=== PATIENT | male | born 1975 | race African-American/Black ===

== ENCOUNTER 2016-09-28 19:28 | Emergency (ER) | payer OTHER ==
[2016-09-28 19:35] VITALS: BP 119/75; PULSE 96; TEMP 98.1; BMI 39.5
[2016-09-28] MEDS ORDERED: KETOROLAC TROMETHAMINE 60 MG/2 ML VIAL IM ONE (20:56)
--- NOTE | 2016-09-28 20:56 | PDOC ---
History of Present Illness - General Chief Complaint: Chest Pain Stated Complaint: CHEST PAIN Time Seen by Provider: 09/28/16 20:10 History Source: Patient Exam Limitations: No Limitations - History of Present Illness Initial Comments: 09/28/16 20:57 Chief complaint: Intermittent chest discomfort started 2 weeks ago at comes and goes History of present illness: Patient is a 40-year-old male with a history of gastric reflux here today complaining of the left mid to left sternal border discomfort that started approximately 2 weeks ago that comes and goes. Patient reports the most the pain had been was a 5 out of 10 at times feels like at times feels as if it is a burning sensation. Patient denies any radiation of pain down left arm. Patient reports that pain currently as a 4 out of 10 and is reproducible with palpation along the left sternal border. Patient has been exercising at the gym lifting weights stopped doing this approximately 6 days ago however patient continues to have intermittent pain along sternal border. Denies any nausea or vomiting or shortness of breath. 09/28/16 22:53 09/28/16 22:55 Timing/Duration: intermittent (for 2 weeks ) Severity: mild Associated Symptoms: reports: chest pain (see under other ), other (mid chest discomfort and along left sternal border intermittently for 2 weeks reproducible with palpation ) Past History - Past Medical History Allergies/Adverse Reactions: Allergies Allergy/AdvReac Type Severity Reaction Status Date / Time No Known Allergies Allergy Verified 09/28/16 19:35 GI Disorders: Yes (acid reflux) - Immunization History Immunization Up to Date: Yes - Psycho/Social/Smoking Cessation Hx Suicidal Ideation: No Smoking History: Former smoker Have you smoked in the past 12 months: Yes If you are a former smoker, when did you quit?: 6 months ago Information on smoking cessation initiated: No Hx Alcohol Use: Yes Drug/Substance Use Hx: Yes (ecstacy, MDMA) Review of Systems - Review of Systems Able to Perform ROS?: Yes Constitutional: No: Symptoms Reported HEENTM: No: Symptoms Reported Respiratory: No: Symptoms reported Cardiac (ROS): Yes: Chest Pain (mid to left sternal border intermitent for 2 weeks ). No: Irregular Heart Rate ABD/GI: Yes: Indigestion (intermittent for 2 weeks with intermittent belging none presently ) : No: Symptoms Reported Musculoskeletal: No: Symptoms Reported Integumentary: No: Symptoms Reported Neurological: No: Symptoms reported *Physical Exam - Vital Signs Last Vital Signs Temp Pulse Resp BP Pulse Ox 98.1 F 96 H 18 119/75 99 09/28/16 19:29 09/28/16 19:29 09/28/16 19:29 09/28/16 19:29 09/28/16 19:29 - Physical Exam General Appearance: Yes: Appropriately Dressed Respiratory/Chest: positive: Chest Tender (with palpation lower sternal border) , Lungs Clear, Normal Breath Sounds. negative: Respiratory Distress Cardiovascular: positive: Regular Rhythm, Regular Rate, S1, S2 Gastrointestinal/Abdominal: positive: Normal Bowel Sounds, Soft. negative: Tender, Organomegaly, Increased Bowel Sounds, Guarding, Rebound, Tenderness, Hepatomegaly, Spleenomegaly Integumentary: positive: Normal Color Neurologic: positive: Alert, Normal Response, Responsive Heart Score/ECG Review - ECG Impressions Comment:: 09/28/16 21:03 NSR vent rate 91 Medical Decision Making - Medical Decision Making 09/28/16 20:59 Patient is a 40-year-old male with a history of gastric reflux here today complaining of the left mid to left sternal border discomfort that started approximately 2 weeks ago that comes and goes. Patient reports the most the pain had been was a 5 out of 10 at times feels like as if the pain is a burning sensation. Patient denies any radiation of pain down left arm. Patient reports that pain currently as a 4 out of 10 and is reproducible with palpation along the left sternal border. Patient has been exercising at the gym lifting weights stopped doing this approximately 6 days ago however patient continues to have intermittent pain along sternal border. Denies any nausea or vomiting or shortness of breath. Pt. does not have htn, hyperlipidemia, does not smoke does vaping, h/o materal grandmother [place] in her 70's 09/28/16 21:00 reproducible chest pain along left sternal border PLAN: toradol 60 mg IM now EKG NSR, reviewed by Dr. Chairez follow up with primary as soon as possible 09/28/16 21:02 09/28/16 21:03 09/28/16 21:42 will discharge to home feeling better *DC/Admit/Observation/Transfer Diagnosis at time of Disposition: Costochondral chest pain - Discharge Dispostion Disposition: HOME Condition at time of disposition: Stable - Referrals Referrals: Stuart Isabel MD [Primary Care Provider] - - Patient Instructions Additional Instructions: Follow-up with your primary care provider as soon as possible Avoid eating and lying down for at least 2 hours Return to emergency room if symptoms worsn if any shortness of breath or worsening pain take as needed as directed by bowling ball finisher for pain Avoid exercise until cleared by your primary care provider to return to exercising Patient voiced understanding of discharge instructions and all questions were answered
[2016-09-28] MEDS ORDERED: KETOROLAC TROMETHAMINE 60 MG/2 ML VIAL ONE (21:11)
--- NOTE | 2016-09-30 12:45 | EKG ---
Test Reason : Blood Pressure : / mmHG Vent. Rate : 091 BPM Atrial Rate : 091 BPM P-R Int : 166 ms QRS Dur : 088 ms QT Int : 346 ms P-R-T Axes : 036 010 009 degrees QTc Int : 425 ms POOR DATA QUALITY, INTERPRETATION MAY BE ADVERSELY AFFECTED NORMAL SINUS RHYTHM NORMAL ECG NO PREVIOUS ECGS AVAILABLE Confirmed by KAILEE ABBOTT MD ([id number]) on 09/30/2016 12:45:08 PM Referred By: Confirmed By:KAILEE ABBOTT MD
== END 2016-09-28 22:13 | disposition home or self-care (01) ==
LOC: JER 19:28
PROC: 3E0233Z Introduction of Anti-inflammatory into Muscle, Percutaneous Approach (ICD-10-PCS; principal; 2016-09-28)
DX: M94.0 Chondrocostal junction syndrome [Tietze] (principal); Z87.891 Personal history of nicotine dependence; K21.9 Gastro-esophageal reflux disease without esophagitis
CPT/HCPCS: 93005; 93010; 99281-25

== ENCOUNTER 2020-12-21 22:13 | Emergency (ER) | payer OTHER ==
[2020-12-21 22:16] VITALS: BP 132/79; PULSE 103; BMI 42.2
[2020-12-21 22:17] VITALS: TEMP 98.1
== END 2020-12-22 03:46 | disposition home or self-care (01) ==
LOC: JER 22:13
DX: S52.572A Other intraarticular fracture of lower end of left radius, initial encounter for closed fracture (principal); W11.XXXA Fall on and from ladder, initial encounter
CPT/HCPCS: 73090-TC-LT-FY; 73110-TC-LT-FY; 73130-TC-LT-FY; 99284-25

== ENCOUNTER 2021-01-01 13:17 | Day surgery (SDC) | payer OTHER ==
[2020-12-27 12:54] VITALS: BMI 48.7
[2021-01-01] MEDS ORDERED: MIDAZOLAM HCL 2 MG/2 ML SINGLE DOSE VIAL ONE (15:03)
[2021-01-01] MEDS ORDERED: ROPIVACAINE HCL 0.5% 30ML VIAL ONE (15:03)
[2021-01-01] MEDS ORDERED: PROPOFOL 20 ML ONE ×2 (15:18→17:31)
[2021-01-01] MEDS ORDERED: BUPIVACAINE HCL/PF 0.25% (2.5MG/ML) 10 ML VIAL ONE (17:39)
[2021-01-01 19:13] VITALS: BP 116/67; PULSE 65; TEMP 97.8
== END 2021-01-01 19:10 | disposition home or self-care (01) ==
LOC: FASU 13:17
PROVIDERS: ATTEND Orthopaedic Surgery Hand Surgery
PROC: 0LN60ZZ Release Left Lower Arm and Wrist Tendon, Open Approach (ICD-10-PCS; 2021-01-01)
PROC: 0PSJ04Z Reposition Left Radius with Internal Fixation Device, Open Approach (ICD-10-PCS; principal; 2021-01-01 16:51)
DX: S52.572A Other intraarticular fracture of lower end of left radius, initial encounter for closed fracture (principal); X58.XXXA Exposure to other specified factors, initial encounter; Y93.9 Activity, unspecified; Y92.9 Unspecified place or not applicable
CPT/HCPCS: 25290; 25609; C1713; 73110-TC-LT-FY

== ENCOUNTER 2021-01-02 03:25 | Emergency (ER) | payer OTHER ==
[2021-01-02 05:15] VITALS: BMI 42.3
[2021-01-02] MEDS ORDERED: KETOROLAC TROMETHAMINE 15 MG/ML VIAL IM ONE (05:52)
[2021-01-02] MEDS ORDERED: KETOROLAC TROMETHAMINE 15 MG/ML VIAL ONE (05:56)
[2021-01-02] MEDS ORDERED: HYDROmorphone HCL CARPU-JECT 2 MG/1 ML DISP.SYRIN IM ONE (06:45)
[2021-01-02] MEDS ORDERED: HYDROmorphone HCl 2 MG/ML VIAL ONE (06:49)
[2021-01-02 09:59] VITALS: BP 130/66; PULSE 94; TEMP 98.2
== END 2021-01-02 09:55 | disposition home or self-care (01) ==
LOC: JER 03:25
PROC: 3E023NZ Introduction of Analgesics, Hypnotics, Sedatives into Muscle, Percutaneous Approach (ICD-10-PCS; principal; 2021-01-02)
PROC: 3E0233Z Introduction of Anti-inflammatory into Muscle, Percutaneous Approach (ICD-10-PCS; 2021-01-02)
DX: M79.602 Pain in left arm (principal)
CPT/HCPCS: 99284-25

== ENCOUNTER 2022-08-15 20:21 | Emergency (ER) | payer OTHER ==
[2022-08-15 20:33] VITALS: BP 127/84; TEMP 98.4; BMI 46.7
[2022-08-15 22:01] VITALS: PULSE 96; RESP 18
== END 2022-08-15 22:04 | disposition home or self-care (01) ==
LOC: JER 20:21 → JERFT 20:21
DX: S60.222A Contusion of left hand, initial encounter (principal); R07.89 Other chest pain; Y04.0XXA Assault by unarmed brawl or fight, initial encounter
CPT/HCPCS: 73130-TC-LT-FY; 93005; 93010; 99284-25